=== PATIENT | male | born 1995 ===

== ENCOUNTER 2022-09-20 18:52 | Emergency (ER) | payer SELFPAY ==
[~2022-09-20] VITALS: Ht 182.9 cm; Wt 86.4 kg
[2022-09-20 20:14] LABS: HEMATOCRIT 48.5 % (42.0-52.0); HEMOGLOBIN 16.1 g/dl (13.5-18.0); MEAN CELL VOLUME 86 fl (80.0-100.0); MEAN CORPUSCULAR HEMOGLOBIN 29 pg (27-31); MEAN CORPUSCULAR HGB CONC 33 g/dl (33.0-37.0); MEAN PLATELET VOLUME 11.1 fl (7.4-10.4); PLATELET COUNT 352 K/mm3 (130-400); RED BLOOD COUNT 5.63 M/mm3 (4.20-5.60); REDCELL DISTRIBUTION WIDTH-CV 12.4 % (11.5-14.5)
[2022-09-20 20:31] LABS: ALBUMIN 3.7 gm/dL (3.5-5.0); BILIRUBIN,TOTAL 0.5 mg/dL (0.2-1.2); CREATININE, serum 1.59 mg/dL (0.72-1.25); POTASSIUM 3.9 mmol/L (3.5-4.5)
[2022-09-20 21:15] LABS: BAND 20 % (0-10); LYMPHOCYTE 16 % (20.0-51.0); NEUTROPHILS 58 % (42.0-75.2)
[2022-09-20 21:16] LABS: PLATELET ESTIMATE NORMAL (NORMAL)
[2022-09-20 21:50] VITALS: BP 110/57; PULSE 114; TEMP 98.2
== END 2022-09-20 21:50 | disposition short-term general hospital (02) ==
LOC: COL.ER 18:52
PROVIDERS: Emergency Medicine
DX: S22.32XA Fracture of one rib, left side, initial encounter for closed fracture (principal); S12.590A Other displaced fracture of sixth cervical vertebra, initial encounter for closed fracture; S32.019A Unspecified fracture of first lumbar vertebra, initial encounter for closed fracture; S32.029A Unspecified fracture of second lumbar vertebra, initial encounter for closed fracture; S32.039A Unspecified fracture of third lumbar vertebra, initial encounter for closed fracture; S22.051A Stable burst fracture of T5-T6 vertebra, initial encounter for closed fracture; S22.061A Stable burst fracture of T7-T8 vertebra, initial encounter for closed fracture; S36.892A Contusion of other intra-abdominal organs, initial encounter; S37.019A Minor contusion of unspecified kidney, initial encounter; S43.014A Anterior dislocation of right humerus, initial encounter; S00.81XA Abrasion of other part of head, initial encounter; S70.311A Abrasion, right thigh, initial encounter; S50.311A Abrasion of right elbow, initial encounter; S90.511A Abrasion, right ankle, initial encounter; F10.129 Alcohol abuse with intoxication, unspecified; R74.8 Abnormal levels of other serum enzymes; I95.9 Hypotension, unspecified; Y90.7 Blood alcohol level of 200-239 mg/100 ml; V89.2XXA Person injured in unspecified motor-vehicle accident, traffic, initial encounter; Y92.410 Unspecified street and highway as the place of occurrence of the external cause
CPT/HCPCS: J2405; J3010; J7030; J7060; P9016; Q9967